=== PATIENT | female | born 1970 | race Caucasian/White ===

== ENCOUNTER 2019-09-28 16:52 | Emergency (ER) | payer OTHER ==
[2019-09-28 16:57] VITALS: BMI 22.8
[2019-09-28 17:03] VITALS: TEMP 98.9
[2019-09-28] MEDS ORDERED: CYCLOBENZAPRINE HCL 10 MG TABLET (FP) ONE (17:07)
[2019-09-28] MEDS ORDERED: CYCLOBENZAPRINE HCL 10 MG TABLET (FP) PO ONE (17:07)
--- NOTE | 2019-09-28 17:18 | PDOC ---
Documentation entered by Samara Campbell SCRIBE, acting as scribe for Dean Dawn MD. Dean Dawn MD: This documentation has been prepared by the scribeAdrian Ana, SCRIBE, under my direction and personally reviewed by me in its entirety. I confirm that the documentation accurately reflects all work, treatment, procedures, and medical decision making performed by me. History of Present Illness - General Chief Complaint: Pain, Acute Stated Complaint: left hip pain Time Seen by Provider: 09/28/19 16:55 History Source: Patient Exam Limitations: No Limitations - History of Present Illness Initial Comments: 09/28/19 16:58 Patient is a 49 year old female with a significant past medical history of sciatica who presents to the ED with hip and back pain since earlier today. Patient stated she woke up with in her back which is "normal" but that it started "moving down" to her left hip. Patient said she went on a walk which made her symptoms worse along with laying down. Patient said she took 2 Advil pills. Patient also disclosed she has "pressure on bladder and urinary urgency". Patient denies falling, lifting, or any other traumas. Allergies: peanuts Past History - Medical History Allergies/Adverse Reactions: Allergies Allergy/AdvReac Type Severity Reaction Status Date / Time tb test Allergy Uncoded 09/28/19 16:53 Home Medications: Ambulatory Orders Tamsulosin HCl [Flomax] 0.4 mg PO DAILY #5 capsule 09/28/19 COPD: No Other medical history: denies - Psycho-Social/Smoking History Smoking History: Never smoked - Substance Abuse Hx (Audit-C & DAST Scrn) How often the patient has a drink containing alcohol: Never Score: In Men: 4 or > Positive; In Women: 3 or > Positive: 0 Screen Result (Pos requires Nsg. Audit-10AR): Negative In the last yr the pt used illegal drug/Rx for NonMed reason: No Score: Yes response is considered Positive: 0 Screen Result (Positive result requires Nsg. DAST-10): Negative Review of Systems - Review of Systems Able to Perform ROS?: Yes Comments:: 09/28/19 17:05 GENERAL/CONSTITUTIONAL: No fever or chills. No weakness. HEAD, EYES, EARS, NOSE AND THROAT: No change in vision. No ear pain or discharge. No sore throat. CARDIOVASCULAR: No chest pain or shortness of breath. RESPIRATORY: No cough, wheezing, or hemoptysis. GASTROINTESTINAL: No nausea, vomiting, diarrhea or constipation. GENITOURINARY: +Pressure on bladder, frequency. No dysuria, or change in urination. MUSCULOSKELETAL: +Lower back pain, left hip pain . No neck pain. SKIN: No rash NEUROLOGIC: No headache, vertigo, loss of consciousness, or change in strength/sensation. ENDOCRINE: No increased thirst. No abnormal weight change. HEMATOLOGIC/LYMPHATIC: No anemia, easy bleeding, or history of blood clots. ALLERGIC/IMMUNOLOGIC: No hives or skin allergy. *Physical Exam - Vital Signs Last Vital Signs Temp Pulse Resp BP Pulse Ox 0/0 L 09/28/19 16:52 - Physical Exam 09/28/19 17:06 GENERAL: Awake, alert, and fully oriented, in no acute distress HEAD: No signs of trauma EYES: PERRLA, EOMI, sclera anicteric, conjunctiva clear ENT: Auricles normal inspection, hearing grossly normal, nares patent, oropharynx clear without exudates. Moist mucosa NECK: Normal ROM, supple, no lymphadenopathy, JVD, or masses LUNGS: Breath sounds equal, clear to auscultation bilaterally. No wheezes, and no crackles HEART: Regular rate and rhythm, normal S1 and S2, no murmurs, rubs or gallops ABDOMEN: Soft, nontender, normoactive bowel sounds. No guarding, no rebound. No masses EXTREMITIES: + Mild tenderness to LSI joint. Negative SLRn test. Normal range of motion, no edema. No clubbing or cyanosis. No cords, erythema. NEUROLOGICAL: Cranial nerves II through XII grossly intact. Normal speech, normal gait SKIN: Warm, Dry, normal turgor, no rashes or lesions noted. ED Treatment Course - ADDITIONAL ORDERS Additional order review: 09/28/19 17:16 49 y/o female with left lower back pain into left leg/groin, no dysuria hematuria or incontinence No hx of stone but hx of sciatica, does not feel same Exam: no tenderness to spinous process or paravertebral muscles, mild tenderness to left SI joint, neg SLR test b/l strength 5+/5 b/l in LE, no focal deficits noted UA has blood will obtain CT kidney stone study as well Pt is in agreement with plan 09/28/19 17:52 L/S spine lordotic straightening no fracture Left hip/pelvis: no fracture seen 09/28/19 18:32 CT 4mm partial left UVJ stone with mild hydronephrosis Fluids, rest, Motrin Flomax 0.4 mg daily Follow up with Urologist If worsen return to ER Discharge - Discharge Information Problems reviewed: Yes Clinical Impression/Diagnosis: Kidney stone on left side Hydronephrosis Qualifiers: Hydronephrosis type: with renal calculous obstruction Qualified Code(s): N13.2 - Hydronephrosis with renal and ureteral calculous obstruction Condition: Stable Disposition: HOME - Admission No - Follow up/Referral Referrals: Mauricio Abebe MD [Staff Physician] - - Patient Discharge Instructions Patient Printed Discharge Instructions: DI for Kidney Stones, DI for Hydronephrosis-Adult Additional Instructions: Fluids, rest, Motrin Flomax 0.4 mg daily Follow up with Urologist If worsen return to ER - Post Discharge Activity
[2019-09-28 17:20] LABS: EPITHELIAL CELLS MODERATE /hpf
[2019-09-28 18:27] VITALS: BP 136/79; PULSE 100
== END 2019-09-28 18:54 | disposition home or self-care (01) ==
LOC: FER 16:52
DX: N13.2 Hydronephrosis with renal and ureteral calculous obstruction (principal)
CPT/HCPCS: 72100-TC-FY; 73523-TC-FY; 74176-TC; 81003; 81015; 99284-25